=== PATIENT | male | born 1965 | race Caucasian/White ===

== ENCOUNTER 2017-01-09 21:48 | Emergency (ER) | payer SELFPAY ==
[~2017-01-09] VITALS: Ht 172.7 cm; Wt 78.2 kg
[2017-01-09 21:53] VITALS: TEMP 36.7; O2SAT 95; Ht 172.7 cm; Wt 78.2 kg
[2017-01-09] MEDS ORDERED: XYLOCAINE 1%/SOD BICARB 20 ML VIAL INFIL ONE (22:30)
[2017-01-09] MEDS ORDERED: AMOXICIL/CLAVU 875MG HOME PACK PO ONE (22:30)
[2017-01-09] MEDS ORDERED: LIDOCAINE/EPINEPH/TETRACAINE 1 EA SYR EXT STA (22:30)
[2017-01-09] MEDS ORDERED: DIPHTHERIA/TETANUS/PERTUSSIS 0.5 ML SYR/VIAL IM. ONE (22:30)
[2017-01-10] MEDS ORDERED: AMOX875T PO
[2017-01-10 00:24] VITALS: BP 122/74; PULSE 94
--- NOTE | 2017-01-10 02:37 | EMERGENCY ROOM VISIT NOTE ---
ED Visit Note First contact with patient: 22:27 CHIEF COMPLAINT: Animal bite HISTORY OF PRESENT ILLNESS: This 51 yo patient presents to the emergency department with friend after they sustained a dog bite to the left buttock and left cheek from a pit bull that attacked and unprovoked. The patient states he was sitting there when the dog ran to him and started biting him. The patient reports that the animal's immunizations are up-to-date. The patient complains of throbbing 6/10 pain at the site of the injury. Pain is worse with movement. Tetanus status is not up to date. Patient states he did not provoke the dog. REVIEW OF SYSTEMS: A 6 system review of systems was completed with positives and pertinent negatives listed in the HPI. ALLERGIES: None MEDICATIONS: None PMH: None PHYSICAL EXAM: Vital Signs reviewed, see Nurse's notes, vital signs stable. GENERAL: Pleasant male, awake, alert, well appearing, no acute distress. Non toxic in appearance. SKIN: The skin was without obvious lacerations or abrasions. Capillary reflex less than 2 seconds. HEAD: Normocephalic atraumatic. EARS: External auditory canals clear, tympanic membranes pearly gongora without erythema or effusion bilaterally. No hemotympanums. No zeng sign. No mastoid tenderness. EYES: Pupils equal round and reactive to light and accommodation. Conjunctivae without injection, sclerae without icterus. Extraocular movements intact. Fundoscopic exam without hemorrhages or papilledema. NOSE: Patent, turbinates without inflammation or discharge. No sinus tenderness. No septal hematoma or bleeding. FACE: No facial bone tenderness. Full range of motion of the jaw without tenderness. MOUTH: Mucous membranes moist. Pharynx without erythema or exudate. Uvula midline. Airway patent. Tongue does not deviate. NECK: Supple without nuchal rigidity. Cervical spine is nontender. Full range of motion of the neck without tenderness. No JVD. HEART: Regular rate and rhythm without murmurs gallops or rubs. LUNGS: Clear to auscultation bilaterally without wheezes, rales or rhonchi. No dullness to percussion. No retractions or accessory muscle use. No chest wall tenderness. ABDOMEN: Positive bowel sounds x 4. Normal tympanic percussion. Soft, nontender, without masses or organomegaly. No guarding or rebound tenderness. MUSCULOSKELETAL: Normal gait. Examination of the left cheek reveals 3 cm laceration just below the eye and a 5 cm jagged irregular stellate laceration to the left cheek that is gaping type of wound. There is swelling on inspection. Palpation of the face reveals minimal tenderness. No significant crepitus or warmth noted. No joint space, tendon, or vascular involvement. Distal pulses intact. Left buttock reveals a puncture and for lacerations that are gaping with no foreign bodies visualized NEURO: No sensory or motor deficits noted over all dermatomes and myotomes tested. Patient was alert and oriented to person place and time. Normal sensation to light and sharp touch. No focal neurological deficits. EMERGENCY DEPARTMENT COURSE AND DECISION MAKING: I examined the patient. The patient presented with an isolated bite wound as described as above. By the history, there is no concern for rabies exposure. No signs of infection on examination. ER Treatment: Department of Health paperwork completed. Tetanus booster was given. Antibiotic prophylaxis is indicated. Patient was started on Augmentin. The area was cleansed with Betadine and sterile saline and dressed with bacitracin and a bandage. Location: left lower eyelid Total length: 3cm Complexity: simple Verbal consent was obtained after the risks and benefits were explained, including but not limited to bleeding, scarring, infection, pain, and bone/joint /nerve damage. At this time, the risks of the procedure are less than the risks of NOT performing the procedure. A time out was taken and the correct patient and site identified. The skin was prepped with betadine. The target area was anesthetized with 2 ml of 1% lidocaine without epinephrine. Copious irrigation was performed using NSS. The skin was re-prepped with betadine and a sterile field set. The wound was explored for foreign bodies and none found. Examination revealed no injury to deep structures such as tendons, bone, or significant blood vessels. Debridement was not performed. The wound edges were approximated using 8, 6-0 simple interrupted nylon sutures. Hemostasis and excellent approximation was achieved. Antibacterial ointment and a sterile dressing applied. Detailed wound care instructions and signs and symptoms of infection reviewed with the pt. No complications and the patient tolerated the procedure well. Location: Left cheek Total length: 5cm Complexity: Complex as wound was jagged, irregular and stellate in nature Verbal consent was obtained after the risks and benefits were explained, including but not limited to bleeding, scarring, infection, pain, and bone/joint /nerve damage. At this time, the risks of the procedure are less than the risks of NOT performing the procedure. A time out was taken and the correct patient and site identified. The skin was prepped with betadine. The target area was anesthetized with LET and 4 ml of 1% lidocaine without epinephrine. Copious irrigation was performed using NSS. The skin was re-prepped with betadine and a sterile field set. The wound was explored for foreign bodies and none found. Examination revealed no injury to deep structures such as tendons, bone, or significant blood vessels. Debridement was not performed. The wound edges were approximated using 15, 6-0 simple interrupted nylon sutures. Hemostasis and excellent approximation was achieved. Antibacterial ointment and a sterile dressing applied. Detailed wound care instructions and signs and symptoms of infection reviewed with the pt. No complications and the patient tolerated the procedure well. Location: Left buttock Total length: 3cm Complexity: simple Verbal consent was obtained after the risks and benefits were explained, including but not limited to bleeding, scarring, infection, pain, and bone/joint /nerve damage. At this time, the risks of the procedure are less than the risks of NOT performing the procedure. A time out was taken and the correct patient and site identified. The skin was prepped with betadine. The target area was anesthetized with 2 ml of 1% lidocaine without epinephrine. Copious irrigation was performed using NSS. The skin was re-prepped with betadine and a sterile field set. The wound was explored for foreign bodies and none found. Examination revealed no injury to deep structures such as tendons, bone, or significant blood vessels. Debridement was not performed. The wound edges were loosely approximated using 4 toya as this is a dirty wound. Hemostasis and excellent approximation was achieved. Antibacterial ointment and a sterile dressing applied. Detailed wound care instructions and signs and symptoms of infection reviewed with the pt. No complications and the patient tolerated the procedure well. Location: left buttock Total length: 3cm Complexity: simple Verbal consent was obtained after the risks and benefits were explained, including but not limited to bleeding, scarring, infection, pain, and bone/joint /nerve damage. At this time, the risks of the procedure are less than the risks of NOT performing the procedure. A time out was taken and the correct patient and site identified. The skin was prepped with betadine. The target area was anesthetized with 3 ml of 1% lidocaine without epinephrine. Copious irrigation was performed using NSS. The skin was re-prepped with betadine and a sterile field set. The wound was explored for foreign bodies and none found. Examination revealed no injury to deep structures such as tendons, bone, or significant blood vessels. Debridement was not performed. The wound edges were loosely approximated using 2 toya as this is a dirty wound. Hemostasis and excellent approximation was achieved. Antibacterial ointment and a sterile dressing applied. Detailed wound care instructions and signs and symptoms of infection reviewed with the pt. No complications and the patient tolerated the procedure well. Location: left buttock Total length: 2cm Complexity: simple Verbal consent was obtained after the risks and benefits were explained, including but not limited to bleeding, scarring, infection, pain, and bone/joint /nerve damage. At this time, the risks of the procedure are less than the risks of NOT performing the procedure. A time out was taken and the correct patient and site identified. The skin was prepped with betadine. The target area was anesthetized with 2 ml of 1% lidocaine without epinephrine. Copious irrigation was performed using NSS. The skin was re-prepped with betadine and a sterile field set. The wound was explored for foreign bodies and none found. Examination revealed no injury to deep structures such as tendons, bone, or significant blood vessels. Debridement was not performed. The wound edges were loosely approximated using 2 toya as this is a dirty wound. Hemostasis and excellent approximation was achieved. Antibacterial ointment and a sterile dressing applied. Detailed wound care instructions and signs and symptoms of infection reviewed with the pt. No complications and the patient tolerated the procedure well. Patient was counseled on the importance of following up for wound rechecks as he had multiple deep lacerations from the dog. Extensive irrigation was performed. No foreign bite visualized. He was neurovascularly and neurologically intact. He was started on antibiotics. He is given a tender shot. They state that the rabies was current and did not want prophylaxis. Paperwork is filled out and faxed off to stay by nursingAndre as this is a quite concerning injury today from this pit bull dog. Patient was advised to return to the ER immediately for fevers, redness, drainage, signs of infection, worsening signs or symptoms or as needed. He was advised stable removal in 8- 10 days and suture removal in 5-7 days. Discharge instructions reviewed. Discharged in stable condition. DIAGNOSIS: #1 Initial encounter for dog bite to left side of face and left buttock. #2 left facial lacerations #3 left buttock lacerations DISCHARGED INSTRUCTIONS: As below Current/Historical Medications Scheduled Amoxicillin & Pot Clavulanate (Augmentin 875-125 mg), 1 TAB PO BID Allergies Coded Allergies: No Known Allergies (Unverified , 09/26/15) Vital Signs Date Time Temp Pulse Resp B/P (MAP) Pulse Ox O2 Delivery O2 Flow Rate FiO2 01/10/17 00:24 94 16 122/74 01/09/17 21:53 36.7 97 18 124/77 95 Room Air Medications Administered Medications (Trade) Dose Ordered Sig/Deanna Route Start Time Stop Time Status Last Admin Dose Admin Diphtheria/ Pertussis/Tetanus Vacc (Adacel Inj) 0.5 ml ONCE ONCE IM. 01/09/17 22:30 01/09/17 22:34 DC 01/09/17 22:52 0.5 ML Amoxicillin/ Clavulanate Potassium (Augmentin 875MG Home Pack) 1 homepack UD ONCE PO 01/09/17 22:30 01/09/17 22:34 DC 01/09/17 22:30 1 HOMEPACK Tetracaine/ Epinephrine/ Lidocaine (L.e.t. Gel 4%/ 1:100/0.5%) 1 ea NOW STAT EXT 01/09/17 22:30 01/09/17 22:34 DC 01/09/17 22:51 1 EA Departure Information Impression Primary Impression: Laceration of buttock Additional Impressions: Dog bite of left buttock Face lacerations Dog bite of face Dispostion Home / Self-Care Condition GOOD Prescriptions Amoxicillin & Pot Clavulanate (Augmentin 875-125 mg) 1 Tab Tab 1 TAB PO BID for 9 Days, #18 TAB Prov: Lisa Dunham PA-C 01/10/17 Forms HOME CARE DOCUMENTATION FORM, IMPORTANT VISIT INFORMATION Patient Instructions My [facility], ED Bite Dog, ED Laceration All Additional Instructions Wound recheck in 2 days. Augmentin 875 mg: Take one pill 2 times daily for 10 days.All antibiotics can cause diarrhea. If this occurs and you feel worse or it does not resolve in 1- 2 days follow up with your doctor or return to the Emergency Department as this could be signs of serious underlying problems. Any medication can cause an allergic reaction, stop the pills immediately and return to the ER for rash, hives, breathing difficulties, or swelling. Ibuprofen(Motrin, Advil) may be used for fever or pain. Use 600mg every six hours as needed. Take with food. Avoid using more than 2400mg in a 24 hour period. Do not use 2400mg per day for more than three consecutive days without physician direction. Prolonged inappropriate use can lead to stomach upset or ulcers. This medication can be taken if you need to drive, work, or perform activities which may be dangerous when taking narcotic pain medication. (AND/OR) Acetaminophen(Tylenol) may be used for fever or pain. Use 1000mg every six hours as needed. Avoid using more than 3000mg in a 24 hour period. This medication can be taken if you need to drive, work, or perform activities which may be dangerous when taking narcotic pain medication. Keep wound clean and dry. Do not allow any crusting or dried blood to accumulate on sutures. If this occurs, use a 1:1 solution of hydrogen peroxide/ water on a Q-tip to clean the wound. Use an antibiotic ointment for 3-4 days, then let wound dry. Suture removal in 5-7 days. Stable removal in 8 days. Return sooner for any signs of infection (increasing redness, swelling, drainage ). Ice and elevate for swelling and pain. Keep covered when in sun until sutures removed then SPF 50 or higher for one year. Vitamin E oil if desired two weeks after suture removal for reduction of scar Problem Qualifiers
[2017-01-11] MEDS ORDERED: ACET-1256 PO (14:54)
== END 2017-01-10 00:26 | disposition home or self-care (01) ==
LOC: C.EDB 21:49 → C.EDD 01-10 00:26
DX: S01.85XA Open bite of other part of head, initial encounter (principal); S31.825A Open bite of left buttock, initial encounter; W54.0XXA Bitten by dog, initial encounter; Z23 Encounter for immunization

== ENCOUNTER 2017-01-11 14:14 | Emergency (ER) | payer SELFPAY ==
[~2017-01-11 14:14] MED LIST: AMOX875T PO
[2017-01-11 14:33] VITALS: TEMP 36.8; Ht 177.8 cm
[2017-01-11] MEDS ORDERED: ACET-1256 PO (14:54)
[2017-01-11 15:13] VITALS: BP 152/96; PULSE 81; O2SAT 96
--- NOTE | 2017-01-12 19:44 | EMERGENCY ROOM VISIT NOTE ---
ED Visit Note First contact with patient: 14:38 CHIEF COMPLAINT: Wound recheck. HISTORY OF PRESENT ILLNESS: Mr. Wang is a 51-year-old white male who ambulates into the ED requesting a wound recheck. Patient reports 2 days ago he was bitten in the face by a dog and was seen in this emergency department. While in the emergency department his wound was sutured. He was discharged home in stable condition on Augmentin for antibiotic coverage and encouraged return to the ED in 48 hours for recheck. Currently patient reports he has been feeling well and there has been no pain, swelling, redness, or drainage from the wound. He also reports he feels like the laceration is healing well. PHYSICAL EXAM: Vital Signs: Date Time Temp Pulse Resp B/P (MAP) Pulse Ox O2 Delivery O2 Flow Rate FiO2 01/11/17 15:13 81 16 152/96 96 01/11/17 14:33 36.8 72 20 145/87 99 Room Air General: 51-year-old white male in no acute distress, nontoxic-appearing, afebrile and hemodynamically stable. Neurological: Awake, alert and oriented 3. Pleasant and cooperative with my examination. No focal motor sensory deficits. Face: Clean dry and intact wound on the right side of the face without signs of infection (erythema, swelling, tenderness, purulent drainage). ED COURSE: Patient was assessed as noted above. Patient's medication list was reviewed. Patient was educated about today's findings and instructed on his treatment plan ; he verbalizes understanding and agreement with this plan. DISPOSITION: Patient discharged home in stable condition. CLINICAL IMPRESSION: Facial wound recheck. PLAN: Patient was encouraged to continue his current medications as prescribed. Patient was encouraged to continue his wound cleansing that was previously given to him. Patient was encouraged to continue watching for any signs of infection. Patient was encouraged return ED for signs of infection and/or suture removal or any new/concerning symptoms.
== END 2017-01-11 15:14 | disposition home or self-care (01) ==
LOC: C.EDB 14:15 → C.EDD 15:14
DX: Z04.8 Encounter for examination and observation for other specified reasons (principal)

== ENCOUNTER 2017-01-18 06:22 | Emergency (ER) | payer SELFPAY ==
[~2017-01-18] VITALS: Ht 177.8 cm; Wt 78.0 kg
[~2017-01-18 06:22] MED LIST changes: +ACET-1256 PO
[2017-01-18 06:27] VITALS: TEMP 36.8; O2SAT 97; Ht 177.8 cm; Wt 78.0 kg
[2017-01-18] MEDS ORDERED: AMOX875T PO (06:39)
--- NOTE | 2017-01-18 07:32 | DIAGNOSTIC IMAGING REPORT ---
LEFT VENOUS DOPP LOWER EXT UNILAT CLINICAL HISTORY: 51 years-old Male presenting with r/o dvt . TECHNIQUE: Real-time grayscale and color and spectral Doppler ultrasound imaging of the veins of the left lower extremity was performed. Compression and augmentation were also utilized. COMPARISON: None. FINDINGS: Left: Common femoral vein: Patent. Femoral vein: Patent. Greater saphenous vein: Patent. Popliteal vein: Patent. Calf veins: Patent. Other: None. IMPRESSION: No evidence of deep venous thrombosis. Electronically signed by: Edward Montenegro M.D. 01/18/2017 7:31 AM Dictated Date/Time: 01/18/2017 7:30 AM
[2017-01-18] MEDS ORDERED: CEPHALEXIN MONOHYDRATE 250 MG CAP PO ONE (08:45)
[2017-01-18] MEDS ORDERED: CEPH500C PO (08:52)
--- NOTE | 2017-01-18 08:53 | EMERGENCY ROOM VISIT NOTE ---
History Report prepared by Marianna: Rachel Garcias Under the Supervision of: Dr. Andre Armijo D.O. First contact with patient: 06:35 Chief Complaint: OTHER COMPLAINT Stated Complaint: STICHES/RAJI OUT, LFT LEG SWELLED History of Present Illness The patient is a 51 year old male who presents to the Emergency Room with complaints of worsening left leg pain starting 3 days ago. A dog bit him 9 days ago and he has sutures and raji which he needs to have removed. He was on a 7 day course of Augmentin afterwards. He finished his Augmentin 2 days ago. He noticed some swelling around his ankle 3 days ago. Since then the pain and redness has spread up to his knee. He reports that his muscles feel tight. The pain improves after he walks around. He denies any wounds on his feet or lower extremities. He was outside [employer], but does not think he was exposed to poison [place]. He denies any history of blood clots. Source of History: patient Onset: 3 days ago Position: leg (left) Quality: other (pain) Timing: worsening Modifying Factors (Relieving): other (walking) Note: Pt reports leg redness, muscle tightness. Review of Systems See HPI for pertinent positives & negatives. A total of 10 systems reviewed and were otherwise negative. Past Medical & Surgical Medical Problems: (1) No Known Active Medical Problems Family History Cancer Diabetes mellitus Hypertension Social History Smoking Status: Current Every Day Smoker Alcohol Use: other Drug Use: none Marital Status: Housing Status: lives with family Occupation Status: employed Current/Historical Medications Scheduled Acetaminophen (Tylenol), 1,000 MG PO DAILY Amoxicillin & Pot Clavulanate (Augmentin 875-125 mg), 1 TAB PO BID Cephalexin Monohydrate (Keflex), 500 MG PO QID Allergies Coded Allergies: No Known Allergies (Unverified , 01/18/17) Physical Exam Vital Signs Date Time Temp Pulse Resp B/P (MAP) Pulse Ox O2 Delivery O2 Flow Rate FiO2 01/18/17 09:02 72 16 145/85 01/18/17 06:27 36.8 83 18 153/88 97 Room Air Physical Exam CONSTITUTIONAL/VITAL SIGNS: Reviewed / noted above. GENERAL: Non-toxic in appearance. INTEGUMENTARY: Warm, dry, and [place]. HEAD: Normocephalic. FACE: All sutures removed from the laceration under the left eye and in the left maxillary area, the wound in healing well, there is no sign of infection. EYES: without scleral icterus or trauma. ENT/OROPHARYNX: clear and moist. LYMPHADENOPATHY/NECK: Is supple without lymphadenopathy or meningismus. RESPIRATORY: Lungs clear and equal. CARDIOVASCULAR: Regular rate and rhythm. GI/ABDOMEN: Soft and nontender. No organomegaly or pulsatile mass. No rebound or guarding. Normal bowel sounds. EXTREMITIES: Erythema in the left medial lower leg between the ankle and the knee, no obvious wounds, no edema BACK: No CVA tenderness. BUTTOCK: 6 raji removed from the left buttock area, wound is healing well, no signs of infection. NEUROLOGICAL: Intact without focal deficits. PSYCHIATRIC: normal affect. MUSCULOSKELETAL: Normally developed with good muscle tone. Medical Decision & Procedures ER Provider Diagnostic Interpretation: Radiology results as stated below per my review and radiologist interpretation: LEFT VENOUS DOPP LOWER EXT UNILAT CLINICAL HISTORY: 51 years-old Male presenting with r/o dvt . TECHNIQUE: Real-time grayscale and color and spectral Doppler ultrasound imaging of the veins of the left lower extremity was performed. Compression and augmentation were also utilized. COMPARISON: None. FINDINGS: Left: Common femoral vein: Patent. Femoral vein: Patent. Greater saphenous vein: Patent. Popliteal vein: Patent. Calf veins: Patent. Other: None. IMPRESSION: No evidence of deep venous thrombosis. Electronically signed by: Edward Montenegro M.D. Medications Administered Medications (Trade) Dose Ordered Sig/Deanna Route Start Time Stop Time Status Last Admin Dose Admin Cephalexin Monohydrate (Keflex Cap) 500 mg NOW ONCE PO 01/18/17 08:45 01/18/17 08:46 DC 01/18/17 09:00 500 MG ED Course 0637: Previous medical records were reviewed. The patient was evaluated in room B2. A complete history and physical examination was performed. 0644: Sutures and raji were removed. 0845: Keflex Cap 500 mg PO. 0847: On reevaluation, the patient is resting comfortably. I discussed the results and findings with the patient. He verbalized agreement of the treatment plan. He was discharged home. Medical Decision Differential diagnosis: Etiologies such as DVT, musculoskeletal, infection, joint effusion, trauma, lymphedema, idiopathic, CHF, as well as others were entertained. This is a 51-year-old male who presents to the ED with a chief complaint of needing sutures removed. He also complains of some redness in his left leg. The patient had a dog bite wound to the face and left butt cheek. Raji were and they buttock area and sutures were in the face. These were all removed. The wound appears to be healing well. There is no sign of infection. The patient just finished Augmentin several days ago. The patient developed the redness in his left anterior leg about 2 days ago. He reports some mild discomfort in the area. There is no cerumen swelling. He is afebrile. There is some light erythema to the left medial anterior tibial zone that is approximately 2 inches wide and 6 inches long. There is no obvious wound. He denies any trauma or injuries to that area. An ultrasound did not show DVT. This is presumed to be cellulitis despite just finishing a course of antibiotic. This could be some sort of contact dermatitis although it does not have a classic appearance of that. He denies any specific exposures to that area. Denies being bitten on that leg. He was started on Keflex. He was told to return should things get worse. Medication Reconcilliation Current Medication List: was personally reviewed by me Blood Pressure Screening Patient's blood pressure: Elevated blood pressure Blood pressure disposition: Referred to PCP Impression Primary Impression: Cellulitis of leg, left Scribe Attestation The scribe's documentation has been prepared under my direction and personally reviewed by me in its entirety. I confirm that the note above accurately reflects all work, treatment, procedures, and medical decision making performed by me. Departure Information Dispostion Home / Self-Care Prescriptions Cephalexin Monohydrate (Keflex) 500 Mg Cap 500 MG PO QID, #40 CAP Prov: Andre Armijo D.O. 01/18/17 Referrals No Doctor, Assigned (PCP) Patient Instructions Cellulitis Alexandro, My [facility] Additional Instructions Keflex as prescribed. Return to the emergency department for any worsening. Return for increased swelling, increased redness, fevers, vomiting, redness or red streak extending up the leg into the groin or any other concerns.
[2017-01-18 09:02] VITALS: BP 145/85; PULSE 72
== END 2017-01-18 09:03 | disposition home or self-care (01) ==
LOC: C.EDB 06:24
DX: L03.116 Cellulitis of left lower limb (principal); S01.85XD Open bite of other part of head, subsequent encounter; S31.825D Open bite of left buttock, subsequent encounter; W54.0XXD Bitten by dog, subsequent encounter; F17.200 Nicotine dependence, unspecified, uncomplicated; Z83.3 Family history of diabetes mellitus; Z82.49 Family history of ischemic heart disease and other diseases of the circulatory system

== ENCOUNTER 2017-01-22 07:18 | Emergency (ER) | payer SELFPAY ==
[~2017-01-22] VITALS: Ht 177.8 cm; Wt 79.6 kg
[~2017-01-22 07:18] MED LIST changes: +CEPH500C PO
[2017-01-22 07:22] VITALS: TEMP 36.9; Ht 177.8 cm; Wt 79.6 kg
[2017-01-22] MEDS ORDERED: CEFAZOLIN SOD 1000MG/55 ML D5W IV STA (07:40)
[2017-01-22 08:07] LABS: HEMATOCRIT 44.6 % (42-52); MEAN CELL VOLUME 94.1 fL (80-100); MEAN CORPUSCULAR HEMOGLOBIN 32.9 pg (25-34); MEAN PLATELET VOLUME 9.6 fL (7.4-10.4); PLATELET COUNT 285 K/uL (130-400); RED BLOOD COUNT 4.74 M/uL (4.7-6.1)
[2017-01-22 08:17] LABS: BUN/CREATININE RATIO 10.8 (10-20); CALCIUM 9.3 mg/dl (8.5-10.1); CREATININE 1.2 mg/dl (0.60-1.40); POTASSIUM 3.8 mmol/L (3.5-5.1)
[2017-01-22 08:20] LABS: PARTIAL THROMBOPLASTIN RATIO 1.5; PROTHROMBIN TIME (PATIENT) 10.2 SECONDS (9.0-12.0)
[2017-01-22 08:32] LABS: BASO % 0.5 %; BASO ABS # 0.05 K/uL (0-0.2); COMPLETE YES; EOS % 3.1 %; IG% 0.2 %; LYMPH % 26.4 %; LYMPH ABS # 2.53 K/uL (1.2-3.4); MONO % 10.5 %; NEUT % 59.3 %
--- NOTE | 2017-01-22 09:03 | DIAGNOSTIC IMAGING REPORT ---
LEFT VENOUS DOPP LOWER EXT UNILAT CLINICAL HISTORY: LEFT leg tenderness/palpable cords/redness pain. Edema. TECHNIQUE: Venous Doppler COMPARISON STUDY: 01/18/2017 FINDINGS: Study is negative for deep venous thrombosis. Left calf saphenous thrombophlebitis. This extends from the foot to the calf at its upper margin. No evidence for deep venous involvement. IMPRESSION: 1. Superficial thrombophlebitis involving the calf. 2. No evidence for deep venous thrombosis. The above report was generated using voice recognition software. It may contain grammatical, syntax or spelling errors. Electronically signed by: Milan Feliz M.D. 01/22/2017 9:02 AM Dictated Date/Time: 01/22/2017 9:00 AM
[2017-01-22] MEDS ORDERED: SULF800T23 PO (09:17)
--- NOTE | 2017-01-22 09:19 | EMERGENCY ROOM VISIT NOTE ---
History First contact with patient: 07:26 Chief Complaint: LEG PAIN,LEG INJURY Stated Complaint: LEG PAIN History of Present Illness The patient is a 51 year old male who presents to the Emergency Room with complaints of right leg pain and redness. The patient was seen here last week for the same symptoms and was placed on Keflex. The patient states that the redness is about the same but now he has some swelling in his foot and he has a "hard lump on the medial aspect of his left lower leg. The patient denies any pain in the posterior leg. The patient denies any chest pain or shortness of breath. The patient was originally seen here over one week ago for multiple dog bites to his buttocks and face. He states that he was placed on Augmentin. He had 7 days of Augmentin when he came here for his lower leg redness. He did not have any bites at the area of the redness. The patient was then given Keflex. The patient has been compliant with the Keflex but he discontinued the Augmentin. Review of Systems 10 system review was performed and was negative unless stated otherwise history of present illness. Past Medical/Surgical History Medical Problems: (1) No Known Active Medical Problems Family History Cancer Diabetes mellitus Hypertension Social History Smoking Status: Current Every Day Smoker Alcohol Use: other Drug Use: none Marital Status: Housing Status: lives with family Occupation Status: employed Current/Historical Medications Scheduled Acetaminophen (Tylenol), 1,000 MG PO DAILY Amoxicillin & Pot Clavulanate (Augmentin 875-125 mg), 1 TAB PO BID Cephalexin Monohydrate (Keflex), 500 MG PO QID Physical Exam Vital Signs Date Time Temp Pulse Resp B/P (MAP) Pulse Ox O2 Delivery O2 Flow Rate FiO2 01/22/17 07:22 36.9 86 18 151/92 98 Room Air Physical Exam GENERAL: 51-year-old male appears in no acute distress. MENTAL Status: Alert and oriented 3. LUNGS: Clear auscultation without wheezes rales or rhonchi. CARDIAC: Regular rate and rhythm without murmur.. Pulses is full and equal throughout. LEFT LOWER EXTREMITY: Lateral mid to lower medial aspect with erythema and edema. There is edema noted over the dorsal aspect of the foot but no erythema. There is a palpable cord just above the area of erythema on the lower leg on the medial aspect. The calves are nontender. Negative Homans. Medical Decision & Procedures ER Provider Diagnostic Interpretation: LEFT VENOUS DOPP LOWER EXT UNILAT CLINICAL HISTORY: LEFT leg tenderness/palpable cords/redness pain. Edema. TECHNIQUE: Venous Doppler COMPARISON STUDY: 01/18/2017 FINDINGS: Study is negative for deep venous thrombosis. Left calf saphenous thrombophlebitis. This extends from the foot to the calf at its upper margin. No evidence for deep venous involvement. IMPRESSION: 1. Superficial thrombophlebitis involving the calf. 2. No evidence for deep venous thrombosis. The above report was generated using voice recognition software. It may contain grammatical, syntax or spelling errors. Electronically signed by: Milan Feliz M.D. 01/22/2017 9:02 AM Dictated Date/Time: 01/22/2017 9:00 AM Laboratory Results 01/22/17 07:50 Red Blood Count 4.74, Mean Corpuscular Volume 94.1, Mean Corpuscular Hemoglobin 32.9, Mean Corpuscular Hemoglobin Concent 35.0, Mean Platelet Volume 9.6, Neutrophils (%) (Auto) 59.3, Lymphocytes (%) (Auto) 26.4, Monocytes (%) (Auto) 10.5, Eosinophils (%) (Auto) 3.1, Basophils (%) (Auto) 0.5, Neutrophils # (Auto ) 5.69, Lymphocytes # (Auto) 2.53, Monocytes # (Auto) 1.01, Eosinophils # (Auto ) 0.30, Basophils # (Auto) 0.05 01/22/17 07:50 Test 01/22/17 07:50 White Blood Count 9.60 K/uL (4.8-10.8) Red Blood Count 4.74 M/uL (4.7-6.1) Hemoglobin 15.6 g/dL (14.0-18.0) Hematocrit 44.6 % (42-52) Mean Corpuscular Volume 94.1 fL (80-100) Mean Corpuscular Hemoglobin 32.9 pg (25-34) Mean Corpuscular Hemoglobin Concent 35.0 g/dl (32-36) Platelet Count 285 K/uL (130-400) Mean Platelet Volume 9.6 fL (7.4-10.4) Neutrophils (%) (Auto) 59.3 % Lymphocytes (%) (Auto) 26.4 % Monocytes (%) (Auto) 10.5 % Eosinophils (%) (Auto) 3.1 % Basophils (%) (Auto) 0.5 % Neutrophils # (Auto) 5.69 K/uL (1.4-6.5) Lymphocytes # (Auto) 2.53 K/uL (1.2-3.4) Monocytes # (Auto) 1.01 K/uL (0.11-0.59) Eosinophils # (Auto) 0.30 K/uL (0-0.5) Basophils # (Auto) 0.05 K/uL (0-0.2) RDW Standard Deviation 46.5 fL (36.4-46.3) RDW Coefficient of Variation 13.4 % (11.5-14.5) Immature Granulocyte % (Auto) 0.2 % Immature Granulocyte # (Auto) 0.02 K/uL (0.00-0.02) Prothrombin Time 10.2 SECONDS (9.0-12.0) Prothromb Time International Ratio 1.0 (0.9-1.1) Activated Partial Thromboplast Time 39.4 SECONDS (21.0-31.0) Partial Thromboplastin Ratio 1.5 Anion Gap 8.0 mmol/L (3-11) Est Creatinine Clear Calc Drug Dose 76.9 ml/min Estimated GFR () 81.8 Estimated GFR (Non- 70.6 BUN/Creatinine Ratio 10.8 (10-20) Calcium Level 9.3 mg/dl (8.5-10.1) Medications Administered Medications (Trade) Dose Ordered Sig/Deanna Route Start Time Stop Time Status Last Admin Dose Admin Cefazolin Sodium (Ancef 1000mg/55 ml D5W) 1,000 mg NOW STAT IV 01/22/17 07:40 01/22/17 07:42 DC 01/22/17 08:04 1,000 MG ED Course The patient was evaluated. The patient's EMR and medication list were reviewed. The patient had a venous Doppler at his last ER visit which was negative. Due to the now present palpable cord a Doppler was ordered to evaluate for extensive superficial thrombophlebitis as well as DVT. IV access was obtained. CBC and differential, renal profile, coags were ordered. Labs are reviewed and were unremarkable. White count was normal. The patient was given Ancef 1 g IV. Venous Doppler was interpreted by the radiologist as above with evidence of superficial phlebitis but no evidence of DVT. The patient's case was discussed with Dr. Saucedo who agrees with treatment plan. The patient was informed of the findings. The patient was discharged home in stable condition. Medical Decision Differential diagnosis include cellulitis, superficial phlebitis, DVT Medication Reconcilliation Current Medication List: was personally reviewed by me Blood Pressure Screening Patient's blood pressure: Elevated blood pressure Blood pressure disposition: Elevated BP felt to be situational Impression Primary Impression: Cellulitis of left lower leg Additional Impression: Superficial thrombophlebitis of left leg Departure Information Dispostion Home / Self-Care Condition GOOD Prescriptions Sulfa/Trimethoprim (Bactrim Ds 800MG/160MG) Tab 1 TAB PO BID for 10 Days, TAB Prov: Selena Feliz PA-C 01/22/17 Referrals No Doctor, Assigned (PCP) Forms HOME CARE DOCUMENTATION FORM, IMPORTANT VISIT INFORMATION Patient Instructions ED Phlebitis Superficial, My [facility] Additional Instructions Follow handout instructions. Keep leg elevated whenever possible. Ibuprofen 600 mg every 6 hours with food for pain. Continue Keflex as prescribed. Also take Bactrim as prescribed. If symptoms worsen return to ER immediately since she do not have a family doctor. I would recommend that you get established with a family doctor as soon as possible. Problem Qualifiers
[2017-01-22 09:32] VITALS: BP 133/85; PULSE 76; O2SAT 97
== END 2017-01-22 09:33 | disposition home or self-care (01) ==
LOC: C.EDB 07:18
DX: L03.116 Cellulitis of left lower limb (principal); I80.02 Phlebitis and thrombophlebitis of superficial vessels of left lower extremity; F17.200 Nicotine dependence, unspecified, uncomplicated; Z80.9 Family history of malignant neoplasm, unspecified; Z83.3 Family history of diabetes mellitus; Z82.49 Family history of ischemic heart disease and other diseases of the circulatory system